=== PATIENT | female | born 1970 | race African-American/Black ===

== ENCOUNTER 2017-08-12 13:17 | Emergency (ER) | payer OTHER ==
[2017-08-12 13:28] VITALS: BMI 76.8
--- NOTE | 2017-08-12 14:54 | PDOC ---
Attending Attestation - Resident Resident Name: Verónica Milligan - ED Attending Attestation I have performed the following: I have examined & evaluated the patient, The case was reviewed & discussed with the resident, I agree w/resident's findings & plan, Exceptions are as noted - HPI HPI: 08/12/17 15:08 47y F hx of obesity, agoraphobia, presents with complaint of several months of vaginal spotting but becamse more heavy. pt dneies any complaints of anemia, no asociated abdominal pain. Pt present today due to urging by her daughter. - Physicial Exam PE: 08/12/17 17:14 General: well appearing, nad, conjunctiva not pale w/o signs of anemia abdominal: abd soft nontender, no rebound/guarding - Medical Decision Making 08/12/17 17:14 menorrhagia - will ck labs to r/o anemia US to r/o mass, fibroids will likely need [facility] for further management
--- NOTE | 2017-08-12 15:07 | PDOC ---
History of Present Illness - General Chief Complaint: Vaginal Bleeding Stated Complaint: VAGINAL BLEEDING Time Seen by Provider: 08/12/17 14:38 History Source: Patient - History of Present Illness Initial Comments: 08/12/17 14:49 Patient is a 47 y.o. female with a PMH of morbid obesity and agoraphobia who presents with a 6-7 month h/o hematuria and 2 day h/o vaginal bleed. Patient states she has been soaking 2-3 towels hourly. Patient notes she is post menopausal. Patient endorses increased urgency however denies dysuria or increased frequency. Patient notes she is not sexually active. Of note patient has not been evaluated by a primary care physician for > 5 years but did recieve some hormone replacement for missed periods in her 30's. Patient further denies any SiSx of anemia including shortness of breath, palpitations or lightheadedness. Past History - Past Medical History Allergies/Adverse Reactions: Allergies Allergy/AdvReac Type Severity Reaction Status Date / Time Penicillins Allergy Verified 08/12/17 13:22 Home Medications: Ambulatory Orders Medroxyprogesterone Acetate [Provera] 5 mg PO BID #14 tablet 08/12/17 Other medical history: DENIES - Immunization History Immunization Up to Date: Yes - Suicide/Smoking/Psychosocial Hx Smoking History: Current every day smoker Number of Cigarettes Smoked Daily: 10 Information on smoking cessation initiated: No Hx Alcohol Use: No Drug/Substance Use Hx: No Substance Use Type: None Review of Systems - Review of Systems Constitutional: No: Chills, Fever Respiratory: No: Shortness of Breath Cardiac (ROS): No: Chest Pain : Yes: Frequency, Hematuria. No: Burning, Dysuria Psychiatric: Yes: Other (Agoraphobia) All Other Systems: Reviewed and Negative *Physical Exam - Vital Signs Last Vital Signs Temp Pulse Resp BP Pulse Ox 98.3 F 96 H 14 159/96 98 08/12/17 13:22 08/12/17 13:22 08/12/17 13:22 08/12/17 13:22 08/12/17 13:22 - Physical Exam General Appearance: Yes: Nourished, Obese Respiratory/Chest: positive: Lungs Clear, Normal Breath Sounds (Ascultation of lungs limited by patient's habitus) Cardiovascular: positive: S1, S2 (Cardiac Ascultation limited by patient's habitus) ED Treatment Course - LABORATORY CBC & Chemistry Diagram: 08/12/17 15:05 08/12/17 15:05 Medical Decision Making - Medical Decision Making 08/12/17 17:40 Patient is a 47 y.o. female who presents with a 6 month h/o hematuria as well as 2 day h/o heavy mari vaginal bleed. PLAN 1. CBC, CMP 2. Pelvic Exam 3. Transvaginal U/S Pelvic exam shows closed cervical os and no visible blood in vaginal vault. Transvaginal U/S shows thickened endometrial lining (1.9) cm. Prescribe Provera (5 mg BID) for 14 days and referral to [facility] *DC/Admit/Observation/Transfer Diagnosis at time of Disposition: Thickened endometrium - Discharge Dispostion Disposition: HOME Condition at time of disposition: Good Admit: No - Prescriptions Prescriptions: Medroxyprogesterone Acetate [Provera] 5 mg PO BID #14 tablet - Referrals Referrals: Ciera Low [Primary Care Provider] - Jaime Shannon MD [Staff Physician] - - Patient Instructions Additional Instructions: Please make an appointment with Dr. Shannon within the next 7 days for evaluation and an endometrial biopsy.. Please return to the ED should you experience any worsening or concerning symptoms.
[2017-08-12 15:27] LABS: URINE APPEARANCE SLCLOUDY; URINE BILIRUBIN NEGATIVE (NEGATIVE); URINE BLOOD 3+ (NEGATIVE); URINE COLOR YELLOW; URINE GLUCOSE (UA) NEGATIVE (NEGATIVE); URINE KETONE NEGATIVE (NEGATIVE); URINE NITRITE NEGATIVE (NEGATIVE)
[2017-08-12 15:27] LABS: BASOPHIL 1.3 % (0-2.0); EOSINOPHIL 3.1 % (0-4.5); MCH 29.7 pg (25.7-33.7); MEAN CELL VOLUME 89.8 fl (80-96); MEAN PLT VOLUME 9.6 fl (7.5-11.1); NEUTROPHILS 54.7 % (42.8-82.8); PLATELET COUNT 262 K/MM3 (134-434); RDW 14.5 % (11.6-15.6); WHITE BLOOD COUNT 13.9 K/mm3 (4.0-10.0)
[2017-08-12 15:44] LABS: URINE PROTEIN 1+ (NEGATIVE)
[2017-08-12 15:49] LABS: URINE MUCUS FEW; URINE RBC 5 /hpf (0-3); URINE WBC 4 /hpf (3-5)
[2017-08-12 16:02] LABS: ALBUMIN 3.4 g/dl (3.4-5.0); ALK PHOS 71 U/L (45-117); ANION GAP 10 (8-16); BILIRUBIN,TOTAL 0.3 mg/dL (0.2-1.0); CALCIUM 8.8 mg/dL (8.5-10.1); CO2 23 mmol/L (21-32); GLUCOSE,RANDOM 97 mg/dL (74-106); SGOT/AST 24 U/L (15-37); SGPT/ALT 31 U/L (12-78); TOT PROT 7.7 g/dl (6.4-8.2)
[2017-08-12 17:25] VITALS: BP 134/80; PULSE 77; TEMP 98
[2017-08-12 17:34] LABS: URINE LEUK ESTERASE Negative (NEGATIVE)
== END 2017-08-12 18:29 | disposition home or self-care (01) ==
LOC: JER 13:17
DX: R93.8 Abnormal findings on diagnostic imaging of other specified body structures (principal); E66.01 Morbid (severe) obesity due to excess calories; Z68.45 Body mass index [BMI] 70 or greater, adult; F40.01 Agoraphobia with panic disorder; F17.210 Nicotine dependence, cigarettes, uncomplicated; Z88.0 Allergy status to penicillin
CPT/HCPCS: 36415; 76830-TC; 80053; 81003; 81015; 84703; 85025; 99283-25

== ENCOUNTER 2022-10-30 12:52 | Inpatient (IN) | payer OTHER ==
[2022-10-30 12:58] VITALS: BMI 76.8
[2022-10-30 14:35] LABS: BASO % 1.5 % (0-2.0); EOS % 3.7 % (0-4.5); HEMOGLOBIN 14.3 GM/dL (10.7-15.3); LYMPH % 30.4 % (8-40); MCH 29.6 pg (25.7-33.7); MCHC 32.5 g/dl (32.0-36.0); MEAN CELL VOLUME 90.8 fl (80-96); MEAN PLT VOLUME 9.4 fl (7.5-11.1); MONO % 8.9 % (3.8-10.2); NEUT % 55.5 % (42.8-82.8); PLATELET COUNT 228 10^3/uL (134-434); RBC 4.85 M/mm3 (3.60-5.2); RDW 14.6 % (11.6-15.6); WHITE BLOOD COUNT 8.7 K/mm3 (4.0-10.0)
[2022-10-30 14:44] LABS: INR 1.09 (0.83-1.09); PROTHROMBIN TIME (PATIENT) 12.5 SEC (9.7-13.0)
[2022-10-30 14:47] LABS: ACTIVATED PTT 31.8 SECONDS (25.2-36.5)
[2022-10-30 14:50] LABS: CHLORIDE 106 mmol/L (98-107); SODIUM 141 mmol/L (136-145)
[2022-10-30 14:52] LABS: ALBUMIN 3.4 g/dl (3.4-5.0); ANION GAP 12 MMOL/L (8-16); CO2 24 mmol/L (21-32)
[2022-10-30 14:53] LABS: GLUCOSE,RANDOM 97 mg/dL (74-106)
[2022-10-30 14:54] LABS: BLOOD UREA NITROGEN 11.5 mg/dL (7-18)
[2022-10-30 14:55] LABS: SGOT/AST 26 U/L (15-37); SGPT/ALT 32 U/L (13-61)
[2022-10-30 14:57] LABS: CHOLESTEROL 169 mg/dL (50-200); TOT PROT 7.3 g/dl (6.4-8.2); TRIGLYCERIDES 100 mg/dL (0-150)
[2022-10-30 14:58] LABS: ALK PHOS 64 U/L (45-117); LDL CHOLESTEROL (ONLY SJRH) 97 mg/dL (5-100)
[2022-10-30 14:59] LABS: BILIRUBIN,TOTAL 0.6 mg/dL (0.2-1); HDL CHOLESTEROL 56 mg/dL (40-60)
[2022-10-30] MEDS ORDERED: ASPIRIN 81 MG CHEWABLE TABLETS ONE (18:15)
[2022-10-30] MEDS: ASPIRIN 81 MG CHEWABLE TABLETS PO SCH (18:19)
[2022-10-30] MEDS: SODIUM CHLORIDE 1,000 ML IV SCH (18:19)
[2022-10-30 20:13] LABS: URINE APPEARANCE CLEAR; URINE BILIRUBIN NEGATIVE (NEGATIVE); URINE COLOR YELLOW; URINE GLUCOSE (UA) NEGATIVE (NEGATIVE); URINE KETONE TRACE (NEGATIVE)
[2022-10-30 20:14] LABS: PH,URINE 5.5 (5.0-8.0); URINE LEUK ESTERASE NEGATIVE (NEGATIVE); URINE NITRITE NEGATIVE (NEGATIVE); URINE PROTEIN TRACE (NEGATIVE)
[2022-10-30] MEDS ORDERED: ATORVASTATIN CA 40 MG TABLET (FP) PO SCH (22:00)
[2022-10-30] MEDS ORDERED: ATORVASTATIN CA 40 MG TABLET (FP) ONE (23:54)
[2022-10-31] MEDS ORDERED: MELATONIN 5 MG TABLETS PO ONE (01:03)
[2022-10-31] MEDS ORDERED: ENOXAPARIN NA (PORCINE) 40 MG/0.4 ML DISP.SYRIN SQ ONE (10:27)
[2022-10-31] MEDS ORDERED: ASPIRIN 81 MG CHEWABLE TABLETS ONE (10:27)
[2022-10-31] MEDS: ENOXAPARIN NA (PORCINE) 40 MG/0.4 ML DISP.SYRIN SQ SCH (10:33)
[2022-10-31] MEDS: ASPIRIN 81 MG CHEWABLE TABLETS PO SCH (10:33)
[2022-10-31] MEDS ORDERED: THIAMINE HCL 200 MG/2 ML VIAL ONE ×2 (12:10→17:30)
[2022-10-31] MEDS: THIAMINE HCL 200 MG/2 ML VIAL IVPB SCH ×2 (12:20→17:37)
[2022-10-31] MEDS ORDERED: NICOTINE 21 MG/24 HOURS TOPICAL PATCH ONE (15:07)
[2022-10-31] MEDS: SODIUM CHLORIDE 1,000 ML IV SCH (15:18)
[2022-10-31] MEDS: NICOTINE 21 MG/24 HOURS TOPICAL PATCH TD SCH (15:18)
[2022-10-31] MEDS ORDERED: ATORVASTATIN CA 80 MG TABLET (FP) ONE (21:39)
[2022-10-31] MEDS: ATORVASTATIN CA 80 MG TABLET (FP) PO SCH (21:44)
[2022-11-01] MEDS: THIAMINE HCL 200 MG/2 ML VIAL IVPB SCH ×3 (02:12→17:21)
[2022-11-01] MEDS ORDERED: THIAMINE HCL 200 MG/2 ML VIAL ONE (02:14)
[2022-11-01] MEDS: SODIUM CHLORIDE 1,000 ML IV SCH (06:31)
[2022-11-01] MEDS: ASPIRIN 81 MG CHEWABLE TABLETS PO SCH (09:39)
[2022-11-01] MEDS: ENOXAPARIN NA (PORCINE) 40 MG/0.4 ML DISP.SYRIN SQ SCH (09:39)
[2022-11-01] MEDS: NICOTINE 21 MG/24 HOURS TOPICAL PATCH TD SCH (09:40)
[2022-11-01] MEDS: ATORVASTATIN CA 80 MG TABLET (FP) PO SCH (21:59)
[2022-11-02] MEDS: THIAMINE HCL 200 MG/2 ML VIAL IVPB SCH ×2 (01:39→09:02)
[2022-11-02] MEDS ORDERED: MELATONIN 5 MG TABLETS PO ONE ×2 (01:56→21:25)
[2022-11-02] MEDS: NICOTINE 21 MG/24 HOURS TOPICAL PATCH TD SCH (09:02)
[2022-11-02] MEDS: ENOXAPARIN NA (PORCINE) 40 MG/0.4 ML DISP.SYRIN SQ SCH (09:02)
[2022-11-02] MEDS: SODIUM CHLORIDE 1,000 ML IV SCH (09:02)
[2022-11-02] MEDS: ASPIRIN 81 MG CHEWABLE TABLETS PO SCH (09:02)
[2022-11-02] MEDS: ACETAMINOPHEN 325 MG TABLET (FP) PO PRN (21:56)
[2022-11-02] MEDS: ATORVASTATIN CA 80 MG TABLET (FP) PO SCH (21:57)
[2022-11-03] MEDS ORDERED: THIAMINE HCL 200 MG/2 ML VIAL IM SCH (10:00)
[2022-11-03] MEDS: THIAMINE HCL 100 MG TABLET (FP) PO SCH (10:10)
[2022-11-03] MEDS: NICOTINE 21 MG/24 HOURS TOPICAL PATCH TD SCH (10:10)
[2022-11-03] MEDS: ASPIRIN 81 MG CHEWABLE TABLETS PO SCH (10:12)
[2022-11-03] MEDS: ENOXAPARIN NA (PORCINE) 40 MG/0.4 ML DISP.SYRIN SQ SCH ×2 (10:12→21:25)
[2022-11-03] MEDS: LOSARTAN POTASSIUM 50 MG TABLET PO SCH (10:12)
[2022-11-03] MEDS: ATORVASTATIN CA 80 MG TABLET (FP) PO SCH (21:26)
[2022-11-03] MEDS: ACETAMINOPHEN 325 MG TABLET (FP) PO PRN (21:26)
[2022-11-04 07:47] VITALS: PULSE 72
[2022-11-04 08:29] LABS: HEMATOCRIT 42.8 % (32.4-45.2); HEMOGLOBIN 13.8 GM/dL (10.7-15.3); MCH 29.8 pg (25.7-33.7); MCHC 32.3 g/dl (32.0-36.0); MEAN CELL VOLUME 92.5 fl (80-96); MEAN PLT VOLUME 9.9 fl (7.5-11.1); PLATELET COUNT 202 10^3/uL (134-434); RBC 4.63 M/mm3 (3.60-5.2); WHITE BLOOD COUNT 9.1 K/mm3 (4.0-10.0)
[2022-11-04 08:43] LABS: BLOOD UREA NITROGEN 12.7 mg/dL (7-18)
[2022-11-04 08:46] LABS: CREATININE 0.9 mg/dL (0.55-1.3)
[2022-11-04] MEDS: THIAMINE HCL 100 MG TABLET (FP) PO SCH (10:42)
[2022-11-04] MEDS: LOSARTAN POTASSIUM 50 MG TABLET PO SCH (10:42)
[2022-11-04] MEDS: ENOXAPARIN NA (PORCINE) 40 MG/0.4 ML DISP.SYRIN SQ SCH (10:42)
[2022-11-04] MEDS: NICOTINE 21 MG/24 HOURS TOPICAL PATCH TD SCH (10:42)
[2022-11-04] MEDS: ASPIRIN 81 MG CHEWABLE TABLETS PO SCH (10:42)
[2022-11-04 14:07] VITALS: BP 154/60; RESP 18; TEMP 97.8
== END 2022-11-04 16:54 | disposition home or self-care (01) | DRG 45 ==
LOC: JER 12:52 → JERBED 13:16 → J4W 11-01 05:31 → OBSVTOIN 11-04 07:40
PROVIDERS: ADMIT Internal Medicine; ATTEND Internal Medicine
DX: I63.511 Cerebral infarction due to unspecified occlusion or stenosis of right middle cerebral artery (principal); R42 Dizziness and giddiness; F17.210 Nicotine dependence, cigarettes, uncomplicated; E66.01 Morbid (severe) obesity due to excess calories; R47.81 Slurred speech; R32 Unspecified urinary incontinence; I10 Essential (primary) hypertension; G81.94 Hemiplegia, unspecified affecting left nondominant side; Z68.45 Body mass index [BMI] 70 or greater, adult
CPT/HCPCS: 0241U-QW; 36415; 70450-TC; 70496-TC; 70498-TC; 80048; 80053; 80061; 81003; 82550; 82553; 82607; 82962; 83036; 84443; 84484; 84703; 85025; 85027; 85610; 85730; 86850; 86870; 86900; 86901; 86902; 93005; 93010; 97116-GP; 97162-GP; 99285-25; G0378; Q9967